=== PATIENT | female | born 1995 | race Caucasian/White ===

== ENCOUNTER 2023-09-09 11:08 | Day surgery (SDC) | payer OTHER, SELFPAY ==
[2023-09-07 14:37] VITALS: BMI 32.3
[2023-09-09] VITALS (11 sets, daily range): BP systolic 92–147; BP diastolic 52–88; PULSE 90–111; RESP 12–22; TEMP 36.1–37.2; O2SAT 92–100; BMI 32.3
--- NOTE | 2023-09-09 | DI.RAD.S_ITS ---
PROCEDURE: XR SHOULDER LT MIN 2V INDICATIONS: ARTRHO SHOULDER TECHNIQUE: Left views of the shoulder were acquired. COMPARISON: None. FINDINGS: Intraoperative fluoroscopic views of the left humeral head. There is a screw in the humeral head. IMPRESSION: Intraoperative fluoroscopic views as above. Dictated by: Genaro White M.D. on 09/10/2023 at 10:41 Approved by: Genaro White M.D. on 09/10/2023 at 10:42
[2023-09-09] MEDS: LACTATED RINGERS 1,000 ML 42 ML IV ×2 (11:50→16:09)
--- NOTE | 2023-09-09 13:16 | PM.PREOP ---
Pre-operative Note Interval Note History & Physical reviewed/Exam performed by Physician: Yes Changes to H&P: No
[2023-09-09] MEDS: CEFAZOLIN 2 GM/100 ML PREMIX 100 ML IV (13:53)
--- NOTE | 2023-09-09 14:26 | SUR.OPER ---
Lateral on padded OR bed with ann bag positioner, head on pillow, gel axillary roll in place, bottom leg bent with gel pad under knee to foot, upper leg straight and supported with pillows. Operative arm secured in shoulder positioning suspension device. non-operative arm secured on padded arm board. Safety belt at hip, tape over blanket securing lower legs.
[2023-09-09] MEDS: BUPIVACAINE 0.25% (PF) 30 ML, EPINEPHrine 0.15 MG INJ (14:42)
[2023-09-09] MEDS: ACETAMINOPHEN IV 1,000 MG/100 ML VIAL 400 MG IV (14:45)
[2023-09-09] MEDS: SODIUM CHLORIDE IRRIG SOLUTION 3,000 ML 3000 ML IRR (14:53)
[2023-09-09] MEDS: EPINEPHrine 1 MG/ML 9 MG IRR (15:00)
[2023-09-09] MEDS: SCOPOLAMINE 1 PATCH TOP (16:38)
--- NOTE | 2023-09-09 17:06 | SUR.OPER ---
Converted to open case, moved patinet to different bed into Beach chair with Skytron shoulder positioner. Lower body on padded OR bed. Head in foam padded head cradle, secured with straps. Non-operative arm secured <90 degrees abduction and padded with gel pad. 2 Pillows under knees. Safety belt at thigh. Cloth tape over blanket over lower legs.
--- NOTE | 2023-09-09 18:14 | P.OP_ITS ---
Operative Date/Time/Diagnoses Date of procedure: 09/09/23 Time of procedure: 18:14 Pre-op diagnosis: Left shoulder posterior dislocation Post-op diagnosis: same Procedure & Clinicians Procedure: 1. Arthroscopic labral repair (posterior) 2. Open Lesser tuberosity transfer (McGlaughlin procedure) 3. Open Capsulorrhaphy, anterior 4. Biceps tenodesis, open Same procedure as scheduled: Yes Indications: This is a 28-year-old female who fell off of a horse sustaining a left shoulder posterior dislocation which was left unreduced for 2 weeks. We discussed preoperatively performing Bankart repair and remplissage versus lesser tuberosity transfer for stabilization of her shoulder. Risks and benefits of surgery were discussed again including the risk of infection, damage to internal structures, bleeding, nerve injury, instability, need for revision surgery, blood clots, anesthesia and . No guarantees were made regarding outcomes. Patient expressed understanding and accepted these risks and wished to go forward with surgery and consent was signed. Surgeon: Varinder Simons Click Yes if Unassisted: Yes Anesthesia Type: General Operative Notes Findings: Posterior labral tear as well as large reverse Hill-Sachs lesion as noted on preoperative imaging and under direct visualization Closure Type: primary Specimen(s): none sent Prosthetic devices, grafts, tissues, transplants, or devices: 4.75 SwiveLock x4 1.8 mm FiberTak x2 4.0 mm cancellous cannulated screw (30 in length) Estimated Blood Loss (mL): 20 Blood products transfused: none Procedure in detail: Description of procedure: The patient was seen and evaluated in the preoperative holding area where the risks, benefits, and alternatives of the surgery were discussed. Risks include bleeding, infection, damage to neurovascular structures including the axillary nerve, blood clots including pulmonary embolism, worsening of pain, stiffness, swelling, failure of the surgery, recurrent instability and the need for future surgery. No guarantees were made regarding outcomes. They consented to surgery and the correct operative extremity was marked with my initials. The patient was then brought to the operating room and underwent smooth induction of anesthesia. Patient was placed in the lateral position with the left upper extremity facing up. An axillary roll was placed and all bony prominences were padded and the beanbag was suctioned. 2 g of Ancef were delivered intravenously. The left upper extremity was prepped and draped in the standard sterile fashion. The arm was placed in the suspension device with 10 lb of weight. A time-out was then performed in my initials were again confirmed. A standard posterior portal was then established and an anterior inferior portal was established using a 7 mm portal. Last a viewing portal was established just posterior to the biceps long head tendon. A diagnostic scope was performed noting the above findings. A 7 mm cannula was used for the anterior superior lateral portal, a pan portal was used for the posterior portal. [Without breaching the anterior capsule with a cannula, 2 separate knotless anchors were placed into the Hill- Sachs lesion using our anterior portal incision. The sutures were kept separate from each other and snapped, saved to be used at the end of the case.] A liberator was used through the posterior working portal to elevate the ante rior labrum and capsule off of the anterior glenoid. A ring curette was used to freshen up the edges of the cartilage. Using a 1.8 mm Arthrex knotless FiberTak system we began inferiorly using a curved guide starting between 6 and 7 o'clock. The 1st anchor was placed in a SutureLasso was used to take the passing suture around the labrum and capsule. This was then tightened down through the anterior working portal using the knotless system. This process was repeated at 8 o'clock. Last I turned my attention back to the anterior (reverse) remplissage repair. The 2 anchors were tensioned however as they were tensioned they pulled out. A repeat trial was done with a larger anchor however this pulled out as well. For this reason we elected to go open. The wounds were thoroughly irrigated and closed. The patient was remain intubated and she was transferred over to another table and placed into the beach chair position. She was re-prepped and redraped in the standard sterile fashion. A 2nd time-out was performed. A standard deltopectoral approach was then made incorporating the anterior portal. Dissection was taken down to the clavipectoral fascia. Adhesions were released from underneath the deltoid. The biceps tendon was found within the bicipital groove and he was released from the biceps anchor. It was then tenodesed using a 3.0 mm bio SutureTak in the bicipital groove just above the level of the pectoralis tendon. I then turned to the osteotomy of the lesser tuberosity. Using a 10 mm saw blade a clean osteotomy was made. After the lesser tuberosity was mobilized the defect was seen clearly. The edges were debrided and 2 separate 4.75 mm SwiveLock anchors were placed at the articular margin. Sutures were passed through the subscapularis tendon and were placed in 2 lateral row anchors for a speed bridge repair. Last, I drilled for a 4.0 mm cancellous screw in the middle of the speed bridge repair for backup support. Fluoroscopy was used to confirm the screw length. Posterior portals were kept closed with nylon, the anterior incision was closed with 2-0 Vicryl and 3-0 Monocryl. She was dressed with a Aquacel dressing. She was transported to the postoperative recovery unit without any complications and after she demonstrated good neurovascular exam a interscalene block was performed. Complications: none Post-operative Condition: stable Disposition: PACU Plan for aftercare: Postoperative instructions: Sling to remain on for 6 weeks. No external rotation. Aquacel dressing to remain on for 2 weeks. This will be removed in clinic. Okay to shower with soap and water running over top of the dressing. NOTE: If water gets underneath the dressing, please remove the dressing and replace with clean dry 4x4s.
[2023-09-09] MEDS: HYDROMORPHONE 1 MG INJ IV ×2 (18:17→18:22)
[2023-09-09] MEDS: hydrOXYzine 50 MG/ML INJ 25 MG IM (18:18)
[2023-09-09] MEDS: OXYCODONE IR 5 MG TABLET PO (18:18)
--- NOTE | 2023-09-09 18:34 | SUR.PHASEI ---
Block start time [1842] . Monitoring initiated and maintained throughout procedure. Oxygen and medications given per anesthesiologist instructions. Patient remained stable throughout procedure, no adverse reactions noted. Block end time [1846].
--- NOTE | 2023-09-09 18:49 | SUR.PHASEI ---
PACU- SWITCHER states chest x-ray not needed in pacu, dc\d order
== END 2023-09-09 19:23 | disposition home or self-care (01) ==
PROVIDERS: PCP Acupuncturist; Referring Provider Orthopaedic Surgery; Visit Provider Orthopaedic Surgery
PROC: 0RQK4ZZ Repair Left Shoulder Joint, Percutaneous Endoscopic Approach (ICD-10-PCS; CPT 29807; principal; 2023-09-09 12:45)
DX: S43.005A Unspecified dislocation of left shoulder joint, initial encounter (principal); V80.010A Animal-rider injured by fall from or being thrown from horse in noncollision accident, initial encounter
CPT/HCPCS: 23395; 23460; 64450; 71045; 73030; 76000; 81025; J0131; J0171; J0330; J0690; J1100; J1170; J2250; J2405; J2704; J3010; J3410